=== PATIENT | female | born 1970 | race Caucasian/White ===

== ENCOUNTER 2016-07-17 21:53 | Inpatient (IN) | payer MEDICAID ==
[~2016-07-17] VITALS: Ht 160 cm; Wt 76.0 kg
[2016-07-17 22:00] VITALS: Ht 160 cm; Wt 76.0 kg
[2016-07-17] MEDS ORDERED: SOD CHLORIDE 0.9% 500 ML IV STA (23:58)
[2016-07-18] VITALS (7 sets, daily range): BP systolic 143–197; BP diastolic 74–106; PULSE 73–86; RESP 20–22; TEMP 97.8
[2016-07-18 00:21] LABS: ADD SCAN DIFF NO; BASOPHIL # 0.1 10^3/ul (0.0-0.1); BASOPHILS % 0.7 % (0.0-2.0); EOSINOPHILS # 0.3 10^3/ul (0.0-0.5); EOSINOPHILS % 3.4 % (0.0-7.0); HEMATOCRIT 22.9 % (37.0-47.0); LYMPHOCYTES # 2.6 10^3/ul (0.8-2.9); LYMPHOCYTES % 35.1 % (15.0-51.0); MEAN CORPUSCULAR HEMOGLOBIN 26.8 pg (29.0-33.0); MEAN CORPUSCULAR HGB CONC 30.6 g/dl (32.0-37.0); MEAN CORPUSCULAR VOLUME 87.7 fl (82.0-101.0); MEAN PLATELET VOLUME 10.4 fl (7.4-10.4); MONOCYTE # 0.4 10^3/ul (0.3-0.9); MONOCYTES % 4.7 % (0.0-11.0); NEUTROPHIL # 4.1 10^3/ul (1.6-7.5); NEUTROPHILS % 55.8 % (39.0-77.0); PLATELET COUNT 295 10^3/UL (140-415); RED BLOOD COUNT 2.61 10^6/ul (4.20-5.40); RED CELL DISTRIBUTION WIDTH 13.9 % (11.5-14.5); RETICULOCYTE COUNT % 3.7 % (0.5-1.5); WHITE BLOOD COUNT 7.4 10^3/ul (4.8-10.8)
[2016-07-18 00:41] LABS: ADD UMIC YES; IRON 22 ug/dl (35-150); URINE BILIRUBIN (Dip) NEGATIVE (NEGATIVE); URINE BLOOD (Dip) 1+ (NEGATIVE); URINE COLOR LT. YELLOW (YELLOW); URINE GLUCOSE (Dip) NEGATIVE (NEGATIVE); URINE KETONES (Dip) NEGATIVE (NEGATIVE); URINE LEUKOCYTE ESTERASE (Dip) TRACE (NEGATIVE); URINE NITRITE (Dip) NEGATIVE (NEGATIVE); URINE TOTAL PROTEIN (Dip) 2+ (NEGATIVE); URINE UROBILINOGEN (Dip) 0.2 E.U./dL (0.1-1.0)
[2016-07-18] MEDS ORDERED: ATEN-51 PO (00:41)
[2016-07-18] MEDS ORDERED: LOSA25TA5 PO (00:41)
[2016-07-18] MEDS ORDERED: ACET325T33 PO (00:41)
[2016-07-18 00:42] LABS: CALCIUM 8.5 mg/dl (8.4-10.2); CREATININE 8.57 mg/dl (0.44-1.00); POTASSIUM 4.4 mmol/L (3.5-5.1)
[2016-07-18 00:50] LABS: TOTAL IRON BINDING CAPACITY 284 ug/dl (241-421)
[2016-07-18 01:11] LABS: BACTERIA,URINE FEW; SQUAMOUS EPITHELIAL CELL,UR FEW
--- NOTE | 2016-07-18 02:33 | ERA ---
ER Documentation Chief Complaint Date/Time DATE: 07/18/16 TIME: 02:32 Chief Complaint abnorma lab results , sent by [facility] HPI This a 46-year-old female sent in from an outside clinic for anemia. She denies any symptomology. Was found to have a hemoglobin of 7. Denies any bleeding. Denies any black tarry stools. Does complain of heavy periods. ROS All systems reviewed and are negative except as per history of present illness. Medications Home Meds Reported Medications Acetaminophen* (Tylenol*) 325 Mg Tablet, 325 MG PO Q6H Y for PAIN AND OR ELEVATED TEMP, TAB 07/18/16 Atenolol* (Atenolol*) 25 Mg Tablet, 25 MG PO DAILY, #30 TAB 07/18/16 Losartan Potassium* (Losartan Potassium*) 25 Mg Tablet, 25 MG PO DAILY, TAB 07/18/16 Allergies Allergies: Coded Allergies: No Known Allergy (Unverified , 07/17/16) PMhx/Soc History of Surgery: Yes (c/s) Anesthesia Reaction: No Hx Cardiac Disorders: Yes (htn, high cholesterol) Hx Miscellaneous Medical Probl: Yes (anemia, post- blood transfusion 20 yrs ago) Hx Alcohol Use: No Hx Substance Use: No Hx Tobacco Use: No Smoking Status: Never smoker Physical Exam Vitals Vital Signs Date Time Temp Pulse Resp B/P Pulse Ox O2 Delivery O2 Flow Rate FiO2 07/18/16 01:55 97.8 77 23 150/86 99 Room Air 07/18/16 01:00 74 21 148/79 95 Room Air 07/18/16 00:15 73 22 156/78 95 Room Air 07/17/16 22:00 98.4 68 20 191/79 100 Physical Exam Const: [] Head: Atraumatic Eyes: Normal Conjunctiva ENT: Normal External Ears, Nose and Mouth. Neck: Full range of motion..~ No meningismus. Resp: Clear to auscultation bilaterally Cardio: Regular rate and rhythm, no murmurs Abd: Soft, non tender, non distended. Normal bowel sounds Skin: No petechiae or rashes Back: No midline or flank tenderness Ext: No cyanosis, or edema Neur: Awake and alert Psych: Normal Mood and Affect Result Diagram: 07/18/16 0005 07/18/16 0005 Results 24 hrs Laboratory Tests Test 07/18/16 00:05 White Blood Count 7.410^3/ul Red Blood Count 2.6110^6/ul Hemoglobin 7.0g/dl Hematocrit 22.9% Mean Corpuscular Volume 87.7fl Mean Corpuscular Hemoglobin 26.8pg Mean Corpuscular Hemoglobin Concent 30.6g/dl Red Cell Distribution Width 13.9% Platelet Count 06653^3/UL Mean Platelet Volume 10.4fl Neutrophils % 55.8% Lymphocytes % 35.1% Monocytes % 4.7% Eosinophils % 3.4% Basophils % 0.7% Nucleated Red Blood Cells % 0.0/100WBC Neutrophils # 4.110^3/ul Lymphocytes # 2.610^3/ul Monocytes # 0.410^3/ul Eosinophils # 0.310^3/ul Basophils # 0.110^3/ul Nucleated Red Blood Cells # 0.010^3/ul Absolute Reticulocyte Count 0.097X10^6 Percent Reticulocyte Count 3.7% Urine Color LT. YELLOW Urine Clarity CLEAR Urine pH 6.0 Urine Specific [place] 1.015 Urine Ketones NEGATIVE Urine Nitrite NEGATIVE Urine Bilirubin NEGATIVE Urine Urobilinogen 0.2 E.U./dL Urine Leukocyte Esterase TRACE Urine Microscopic RBC 5-10/HPF Urine Microscopic WBC 2-5/HPF Urine Squamous Epithelial Cells FEW Urine Bacteria FEW Urine Hemoglobin 1+ Urine Glucose NEGATIVE% Urine Total Protein 2+ Sodium Level 139mmol/L Potassium Level 4.4mmol/L Chloride Level 112mmol/L Carbon Dioxide Level 14mmol/L Anion Gap 17 Blood Urea Nitrogen 66mg/dl Creatinine 8.57mg/dl Glucose Level 95mg/dl Calcium Level 8.5mg/dl Iron Level 22ug/dl Total Iron Binding Capacity 284ug/dl Percent Iron Saturation 8% SAT Lactate Dehydrogenase 514IU/L Current Medications Medications (Trade) Dose Ordered Sig/Aleksey Route PRN Reason Start Time Stop Time Status Last Admin Dose Admin Sodium Chloride (NS) 500 ml @ 500 mls/hr Q1H STAT IV 07/17/16 23:58 07/18/16 00:57 DC 07/18/16 00:26 Procedures/MDM Medical decision-makin year female with severe anemia. Patient typed and crossed for 2 units. Patient was admitted to [facility] to the hospitalist. Departure Diagnosis: Primary Impression: Iron deficiency anemia Qualified Code: D50.9 - Iron deficiency anemia, unspecified iron deficiency anemia type Condition: Serious ANGELA AVILES July 18, 2016 02:33
--- NOTE | 2016-07-18 06:21 | QN ---
Documentation Comment Patient c/o SOB and coughing after getting 500cc NS and 2 units PRBC. no fever. Rales on lung exam. No distress. Concern for mild volume overload. Low concern for TRALI. Patient with new ARF. Still makes urine. Will try small dose of lasix 20mg IV. CXR ordered. Admitting team notified. Pending bed at this time. No indication for BIPAP at this time. Continue to monitor. RAGINI BAIRD MD July 18, 2016 06:21
[2016-07-18] MEDS ORDERED: FUROSEMIDE 20 MG INJ IV ONE (06:30)
--- NOTE | 2016-07-18 06:33 | RADRPT ---
PROCEDURE: XR Chest. CLINICAL INDICATION: Cough TECHNIQUE: An AP view of the chest was obtained. COMPARISON: No prior exam is available for comparison. FINDINGS: There is prominence of the interstitial markings. No pleural effusion or pneumothorax is seen. Th e cardiomediastinal silhouette is mildly enlarged . The osseous structures are unremarkable IMPRESSION: 1. Diffuse prominence of the interstitial markings, may reflect mild underlying interstitial edema or chronic lung changes. 2. Mild cardiomegaly. RPTAT: HH .Radha Woodruff MD, MD Date Time Electronically viewed and signed by .Radha Woodruff MD, MD on 07/18/2016 06:33 .G/
[2016-07-18] MEDS ORDERED: NITROGLYCERIN (SL) 0.4 MG TAB SL ONE (08:00)
[2016-07-18] MEDS ORDERED: ACETAMINOPHEN 325 MG TAB PO PRN (09:00)
[2016-07-18] MEDS ORDERED: ATENOLOL 25 MG TAB PO SCH (09:00)
[2016-07-18] MEDS: ACETAMINOPHEN 325 MG TAB PO PRN ×2 (09:41→19:39)
[2016-07-18] MEDS: ATENOLOL 25 MG TAB PO SCH (09:42)
[2016-07-18] MEDS: hydrALAzine 20 MG INJ IV PRN ×2 (09:49→19:39)
--- NOTE | 2016-07-18 11:04 | HP ---
DATE OF ADMISSION: 07/18/2016 TIME SEEN: 6 a.m. CHIEF COMPLAINT: Abnormal lab results. HISTORY OF PRESENT ILLNESS: The patient is a 46-year-old female with a history of hypertension, dys lipidemia, and possibly anemia, who presented to the emergency department after she was sent from a clinic for abnormal lab results including decreased hemoglobin and elevated creatinine. The patient reports some generalized weakness and on further questioning, she did report occasional abdominal p ain, mainly in the epigastric area as well as having almost constant vaginal bleeding for over a yea r. When she presented to the ER, blood pressure was 191/79, heart rate 68, respiratory rate 20, tempera ture 98.4, oxygen saturation 100% on room air. Laboratories result shows a hemoglobin of 7, creatin ine 8.57, BUN 66, bicarb 14, chloride 112. Potassium was 4.4 and sodium 139. Blood transfusion had been started in the ER. REVIEW OF SYSTEMS: Twelve-point review was performed, negative except as mentioned in the HPI. PAST MEDICAL HISTORY: As per HPI. PAST SURGICAL HISTORY: . SOCIAL HISTORY: Denied history of tobacco, alcohol, or illicit drug use. ALLERGIES: NO KNOWN DRUG ALLERGIES. HOME MEDICATIONS: 1. Atenolol. 2. Losartan. 3. Tylenol. PHYSICAL EXAMINATION: VITAL SIGNS: Blood pressure 156/88, heart rate 58, respiratory rate 16, temperature 97.9, oxygen sa turation 100% on room air. GENERAL: The patient seems to have shortness of breath. HEENT: No obvious head deformity. Pupils reactive to light. Extraocular muscles intact. CARDIOVASCULAR: Regular rate and rhythm with no extra sounds . ABDOMEN: Soft. There is some mild discomfort in the epigastric area to deep palpation. No guardin g, no rebound tenderness, no rigidity. EXTREMITIES: No edema. NEUROLOGIC: No focal deficit. LABORATORY: Pertinent positives results as mentioned in the HPI. IMPRESSION: 1. Severe anemia, likely secondary to dysfunctional uterine bleeding. 2. Acute renal insufficiency. 3. Hypertensive urgency. 4. . 5. Metabolic acidosis. PLAN: Continue blood transfusion. We will obtain a pelvic/vaginal ultrasound to evaluate for fibro id. We will place a nephrology consult. Monitor her hemoglobin closely. Avoid nephrotoxins. We w ill obtain a renal ultrasound, but it seems like her renal insufficiency has a prerenal etiology. W e will give IV fluids for blood transfusion. Further workup and management per clinical course. Dictated By: ANGELA COX/BILL Conf#: [id number] DID#: [id number]
--- NOTE | 2016-07-18 12:02 | RADRPT ---
PROCEDURE: US Retroperitoneum. CLINICAL INDICATION: Elevated BUN and creatinine. Rule out hydronephrosis. TECHNIQUE: Multiple sonographic images of the retroperitoneum were obtained. Evaluation of the ki dneys and bladder was performed as well as visualization of the aorta and other retroperitoneal stru ctures using a curved array transducer. The images were reviewed on a PACS workstation. COMPARISON: No prior studies are available for comparison. FINDINGS: The kidneys are well visualized. The kidneys are atrophic and diffusely hyperechogenic. The right kidney measures 6.4 cm in length. The left kidney measures 8.1 cm in length. There are no focal areas of abnormal echogenicity. There is no mass, calculus, or obstructive uropathy. No perinephric fluid collection is seen. The aorta and IVC are of normal caliber. There is no evidence for aortic aneurysm. The bladder is only partially distended but appears grossly unremarkable. Renal jets are not identified. Postvoid residual was not obtained. IMPRESSION: 1. Hyperechogenic, atrophic kidneys, suggesting medical renal disease. 2. No evidence of hydronephrosis, renal mass or renal calculi. RPTAT: QQ .Patrick Chan MD, Date Time Electronically viewed and signed by .Patrick Chan MD, MD on 07/18/2016 12:01 .Umair/
--- NOTE | 2016-07-18 12:17 | RADRPT ---
PROCEDURE: US Pelvis CLINICAL INDICATION: Dysfunctional uterine bleeding TECHNIQUE: Sonographic evaluation of the pelvis was performed utilizing both transabdominal and tr ansvaginal technique. Curved array transabdominal transducer technique as well as a high frequency endovaginal probe was utilized. Images were reviewed on the high-resolution PACS workstation. COMPARISON: No prior studies are available for comparison. FINDINGS: The exam is of technically limited quality. The uterus is normal in size, echogenicity, and morphology, measuring 10.1 x 7.2 x 6.0 cm. Heterogeneous hypoechoic focus in the lower uterine segment measures 2.3 cm, likely a fibroid. The uterus is anteverted in normal position. The endometrium measures 8.4 mm in thickness. The normal trilaminar stripe of the endometrium is preserved. The right ovary measures 2.1 x 1.5 x 1.8 cm. The left ovary measures 3.1 x 1.5 x 1.9 cm. The ovaries are symmetric in size, echogenicity, and morphology. There are no adnexal masses. There is no significant free fluid in the pelvis. IMPRESSION: 1. Hypoechoic focus in the lower uterine segment measuring up to 2.3 cm, likely a fibroid. 2. Otherwise unremarkable pelvic ultrasound, but with technically limited quality of images. RPTAT: QQ .Patrick Chan MD, Date Time Electronically viewed and signed by .Patrick Chan MD, on 07/18/2016 12:17 .M/
[2016-07-18 17:12] LABS: POTASSIUM,URINE RANDOM 16.1 mmol/L (25-125)
[2016-07-18 17:13] LABS: HEMATOCRIT 30.3 % (37.0-47.0); HEMOGLOBIN 9.9 g/dl (12.0-16.0)
[2016-07-18 17:24] LABS: PROTEIN/CREAT RATIO 6.98 RATIO
[2016-07-18] MEDS: SOD CHLORIDE 0.45% 1,000 ML IV SCH (20:27)
--- NOTE | 2016-07-18 20:29 | CONS ---
Date/Time of Note Date/Time of Note DATE: 07/18/16 TIME: 20:27 Assessment/Plan Assessment/Plan Chief Complaint/Hosp Course [id number] renal A/P ESRD HTN HX DM ANEMIA METABOLIC ACIDOSIS PLAN PER ORDER Problems: Consultation Date/Type/Reason Admit Date/Time July 18, 2016 at 02:27 Initial Consult Date Type of Consultation: renal 24 HR Interval Summary Constitutional: No chills, No febrile Exam/Review of Systems Vital Signs Vitals Vital Signs Date Time Temp Pulse Resp B/P Pulse Ox O2 Delivery O2 Flow Rate FiO2 07/18/16 10:50 86 20 162/74 97 Nasal Cannula 07/18/16 08:30 98.6 07/18/16 08:30 3.0 Exam Neck: supple Respiratory: clear to auscultation Cardiovascular: regular rate and rhythm Gastrointestinal: soft, No distended, No hepatomegaly Musculoskeletal: nl extremities to inspection Extremities: normal pulses Neurological: RADIOLOGIC TECHNICIAN II-XII intact, nl mental status Skin: nl turgor Results Result Diagram: 07/18/16 1704 07/18/16 0005 Results 24 hrs Laboratory Tests Test 07/18/16 00:05 07/18/16 07:05 07/18/16 17:04 White Blood Count 7.4 Red Blood Count 2.61 L Hemoglobin 7.0 L 9.9 #L Hematocrit 22.9 L 30.3 #L Mean Corpuscular Volume 87.7 Mean Corpuscular Hemoglobin 26.8 L Mean Corpuscular Hemoglobin Concent 30.6 L Red Cell Distribution Width 13.9 Platelet Count 295 Mean Platelet Volume 10.4 Neutrophils % 55.8 Lymphocytes % 35.1 Monocytes % 4.7 Eosinophils % 3.4 Basophils % 0.7 Nucleated Red Blood Cells % 0.0 Neutrophils # 4.1 Lymphocytes # 2.6 Monocytes # 0.4 Eosinophils # 0.3 Basophils # 0.1 Nucleated Red Blood Cells # 0.0 Absolute Reticulocyte Count 0.097 Percent Reticulocyte Count 3.7 H Urine Color LT. YELLOW Urine Clarity CLEAR Urine pH 6.0 Urine Specific [place] 1.015 Urine Ketones NEGATIVE Urine Nitrite NEGATIVE Urine Bilirubin NEGATIVE Urine Urobilinogen 0.2 E.U./dL Urine Leukocyte Esterase TRACE H Urine Microscopic RBC 5-10 Urine Microscopic WBC 2-5 Urine Squamous Epithelial Cells FEW Urine Bacteria FEW Urine Hemoglobin 1+ H Urine Glucose NEGATIVE Urine Total Protein 2+ H 331.0 H Sodium Level 139 Potassium Level 4.4 Chloride Level 112 H Carbon Dioxide Level 14 L Anion Gap 17 H Blood Urea Nitrogen 66 H Creatinine 8.57 H Glucose Level 95 Calcium Level 8.5 Iron Level 22 L Total Iron Binding Capacity 284 Percent Iron Saturation 8 L Lactate Dehydrogenase 514 Urine Random Creatinine 47.39 Urine Random Sodium 50 Urine Random Potassium 16.1 L Urine Protein/Creatinine Ratio 6.98 Hemoglobin A1c 5.4 Phosphorus Level 7.1 H Medications Medications Current Medications Atenolol (Tenormin) 25 mg DAILY PO Last administered on 07/18/16 09:42; Admin Dose 25 MG; Start 07/18/16 at 09:30 Ondansetron HCl (Zofran Inj) 4 mg Q6H PRN IV NAUSEA AND/OR VOMITING; Start at 09:00 Hydralazine HCl (Apresoline) 10 mg Q4H PRN IV ELEVATED BLOOD PRESSURE Last administered on 07/18/16 19:39; Admin Dose 10 MG; Start 07/18/16 at 09:00 Acetaminophen 650 mg 650 mg Q6H PRN PO PAIN AND OR ELEVATED TEMP Last administered on 07/18/16 19:39; Admin Dose 650 MG; Start 07/18/16 at 15:00 Sodium Chloride (1/2 NS) 1,000 ml @ 50 mls/hr Q20H IV ; Start 07/18/16 at 20:00 TOI REILLY MD July 18, 2016 20:29
[2016-07-18] MEDS: CITRIC ACID/SODIUM CITRATE 15 ML CUP PO SCH (22:21)
[2016-07-18 23:34] LABS: HAAIG REFLEX REFLEX FILED
[2016-07-19] VITALS (21 sets, daily range): BP systolic 118–197; BP diastolic 61–93; PULSE 67–86; RESP 15–18
[2016-07-19 00:35] LABS: HEPATITIS B CORE ANTIBODY NEGATIVE (NEGATIVE)
[2016-07-19 00:48] LABS: COMPLEMENT C3 99 mg/dl (88-165); COMPLEMENT C4 33 mg/dl (14-44)
--- NOTE | 2016-07-19 01:08 | CONS ---
DATE OF ADMISSION: 07/18/2016 DATE OF CONSULTATION: 07/18/2016 TYPE OF CONSULTATION: Nephrology. Thank you, Dr. Beckman, for kindly asking me to see this patient in nephrology consultation. HISTORY OF PRESENT ILLNESS: The patient, Lorena Mckeon, is a 49-year-old female with history of hypertension, dyslipidemia, anemia, history of diabetes mellitus in the past; had used antidiabetic medication and then stopped, thinking her sugar is good. Patient has not seen a physician for a chrissie y, very long time, and presented to clinic, where she was noted to have renal failure and had dipsti ck positive for proteinuria. The patient noted to have microalbuminuria and transferred here for se pete anemia, electrolyte imbalance, and hypertensive urgency. Patient denies NSAID abuse, denies an y hematuria or dysuria, denies any history of lupus, denies any history of weight loss, denies any h istory of kidney stone, denies any history [id number] herbal medications, denies any history o f rheumatoid arthritis or purpura, skin rash, or photophobia. PAST MEDICAL HISTORY: Hypertension, dyslipidemia, history of diabetes (stopped taking medication). ALLERGY HISTORY: Negative. FAMILY HISTORY: Diabetes mellitus. SOCIAL HISTORY: Negative. PAST SURGICAL HISTORY: Patient has a history of . MEDICATIONS AT HOME: Patient is on: 1. Atenolol. 2. Losartan. REVIEW OF SYSTEMS: HEENT: Unremarkable for headache, diplopia, blurred vision, ulcer, hemoptysis. Denies any epistaxi s or skin rash. CARDIOVASCULAR: No orthopnea, PND. GASTROINTESTINAL: No hematemesis, melena. EXTREMITIES: No swelling. CENTRAL NERVOUS SYSTEM: Denies numbness and tingling. GENITOURINARY: No kidney stones, no hematuria, dysuria, or flank pain. PHYSICAL EXAMINATION: GENERAL: Pale-looking female, awake, alert. VITAL SIGNS: Pulse of 82, blood pressure 162/74. HEAD: Atraumatic, normocephalic. Pupils are equal, reactive to light, conjunctivae with no icterus . NECK: Supple. No JVD. LUNGS: Clear. CARDIOVASCULAR: S1, S2 are normal. ABDOMEN: Soft, nontender. Bowel sounds present. No palpable mass or hepatosplenomegaly. No guard ing or rebound tenderness. EXTREMITIES: There is no cyanosis, clubbing, edema. CENTRAL NERVOUS SYSTEM: The patient is awake, alert, no deficit. LABORATORY DATA: Hematocrit 22, repeat 33.3, sodium 139, potassium 4.4, CO2 of 14, BUN 66, creatini ne 8.57, phosphorus 7.1. The patient's has of 514. The patient had a chest x-ray with diffus e prominence of the interstitial marking. Patient had a pelvic ultrasound focused in the lower uter ine segment. Ultrasound of kidney: No evidence of hydronephrosis, right kidney 6.4 cm, left kidney 8.1 cm. IMPRESSION: 1. Patient has end-stage renal disease. 2. The patient has uncontrolled hypertension. 3. The patient has chronic kidney disease, possibly due to diabetic nephropathy and hypertensive ne phrosclerosis, anemia of kidney disease, metabolic acidosis. 4. The patient has history of dyslipidemia. PLAN: To obtain lupus panel. The patient will have urine sodium and creatinine, eosinophils, C3, C 4, JACKELYN, and hepatitis panel. The patient will also benefit from hemodialysis. The patient will be started on for metabolic acidosis. Thank you, Dr. Beckman, for kindly asking me to see this patient in nephrology consultation. Dictated By: TOI CABALLERO/BILL Conf#: [id number] DID#: [id number]
[2016-07-19 05:19] LABS: ADD SCAN DIFF NO
[2016-07-19 05:27] LABS: BASOPHIL # 0.1 10^3/ul (0.0-0.1); BASOPHILS % 0.9 % (0.0-2.0); EOSINOPHILS # 0.2 10^3/ul (0.0-0.5); HEMATOCRIT 27.7 % (37.0-47.0); LYMPHOCYTES # 0.9 10^3/ul (0.8-2.9); LYMPHOCYTES % 16.9 % (15.0-51.0); MEAN CORPUSCULAR HEMOGLOBIN 27.7 pg (29.0-33.0); MEAN CORPUSCULAR HGB CONC 32.5 g/dl (32.0-37.0); MEAN CORPUSCULAR VOLUME 85.2 fl (82.0-101.0); MEAN PLATELET VOLUME 10.5 fl (7.4-10.4); MONOCYTE # 0.4 10^3/ul (0.3-0.9); MONOCYTES % 6.8 % (0.0-11.0); NEUTROPHIL # 3.7 10^3/ul (1.6-7.5); PLATELET COUNT 245 10^3/UL (140-415); RED BLOOD COUNT 3.25 10^6/ul (4.20-5.40); RED CELL DISTRIBUTION WIDTH 14.5 % (11.5-14.5); WHITE BLOOD COUNT 5.3 10^3/ul (4.8-10.8)
[2016-07-19 06:06] LABS: ALBUMIN 3.1 g/dl (3.3-4.9)
[2016-07-19 06:07] LABS: POTASSIUM 4.3 mmol/L (3.5-5.1)
[2016-07-19 06:09] LABS: ALBUMIN/GLOBULIN RATIO 1.1; BILIRUBIN,INDIRECT 0.2 mg/dl (0-1.1); BILIRUBIN,TOTAL 0.2 mg/dl (0.2-1.3); CREATININE 8.06 mg/dl (0.44-1.00); TOTAL PROTEIN 5.9 g/dl (6.1-8.1)
[2016-07-19 06:10] LABS: CALCIUM 8.6 mg/dl (8.4-10.2)
[2016-07-19] MEDS: hydrALAzine 20 MG INJ IV PRN ×3 (08:14→17:05)
[2016-07-19] MEDS: ATENOLOL 25 MG TAB PO SCH (08:19)
[2016-07-19] MEDS: CITRIC ACID/SODIUM CITRATE 15 ML CUP PO SCH ×2 (08:19→21:34)
--- NOTE | 2016-07-19 11:36 | RADRPT ---
PROCEDURE: US bilateral upper extremity veins. CLINICAL INDICATION: Preoperative evaluation for central line placement. TECHNIQUE: Multiple longitudinal and transverse images of the bilateral internal jugular veins, ax illary veins, and subclavian veins was obtained with laguna scale, pulsed Doppler imaging, and color D oppler imaging. COMPARISON: None available FINDINGS: The internal jugular veins, axillary veins, and subclavian veins are patent bilaterally. There is no rmal flow and compressibility throughout. There is no thrombus or occlusion. The right internal jugular vein diameter is 1.2 cm and the left internal jugular vein diameter is 0. 6 cm. IMPRESSION: 1. Normal bilateral internal jugular and subclavian veins. RPTAT: QQ .Seun Alamo MD, MD Date Time Electronically viewed and signed by .Seun Alamo MD, on 07/19/2016 11:36 .R/
--- NOTE | 2016-07-19 12:58 | PN ---
DATE: 07/19/2016 SUBJECTIVE: The patient seen by renal team, still having adequate urine output. No acute events ov ernight. Awaiting PermCath placement. The patient did receive PRBC transfusion. OBJECTIVE VITAL SIGNS: Stable except for systolic blood pressures running 143 to 179 systolic over 75 to 82 d iastolic. The rest of the vitals are stable. GENERAL: The patient is lying in bed, multiple family members at the bedside. No acute distress. HEENT: Pupils equal, round, react to light. Extraocular muscles intact. NECK: Supple, no thyromegaly. LUNGS: Clear to auscultation bilaterally. CARDIOVASCULAR: S1, S2 heard. No rubs or gallops. ABDOMEN: Soft, nontender, nondistended. Normal bowel sounds. No rebound or guarding. MUSCULOSKELETAL: No lower extremity bilaterally. NEUROLOGIC: No focal deficits. LABORATORY DATA: CBC is normal. Sodium is 141, potassium 4.3, chloride 113, CO2 15, BUN of 67, cre atinine 8.06. LFTs are normal. Bilateral upper extremity Doppler study was performed that shows no rmal bilateral internal jugular and subclavian veins. ASSESSMENT AND PLAN: A 46-year-old female presenting with renal insufficiency and anemia. 1. Severe anemia, possibly secondary to dysfunctional uterine bleeding. The pelvic ultrasound did showed hypoechoic focus in the lower uterine segment measuring 2.3 cm, likely a fibroid. The patien t denies any prior history of irregular menses except for 1 episode that occurred last month. That was the first time it happened. In any event, she got the blood transfusion. Check iron studies. Consider ADMINISTRATIVE ASSISTANT OFFICE MANAGER consult. 2. Acute renal insufficiency. Again, her BUN and creatinine levels severely elevated, although she has adequate urine output. Appreciate renal consult. Plan is for PermCath placement and then hemo dialysis afterwards. Follow up renal recommendations. 3. Hypertension. Again, blood pressure is on the high normal end. Continue hydralazine p.r.n. 4. High cholesterol, follow up lipid panel. Continue to monitor for now. 5. Gastrointestinal prophylaxis. Add H2 hector. 6. Deep venous thrombosis prophylaxis for now, sequential compression devices. Dictated By: ORIN WAGNER Conf#: [id number] DID#: [id number]
[2016-07-19] MEDS: RANITIDINE 150 MG TAB PO SCH ×2 (13:00→21:33)
[2016-07-19 13:14] LABS: INR 1.14; PROTIME 14.6 Sec (12.2-14.2); PT RATIO 1.1
[2016-07-19 13:15] LABS: PARTIAL THROMBOPLASTIN TIME 28.6 Sec (25.0-35.0)
[2016-07-19] MEDS ORDERED: SOD CHLORIDE 0.9% 500 ML ONE (14:29)
[2016-07-19] MEDS ORDERED: LIDOCAINE 1% (MDV) 20 ML INJ ONE (14:29)
[2016-07-19] MEDS ORDERED: HEPARIN 1000 UNITS/ML 10 ML INJ ONE (14:29)
[2016-07-19 14:51] LABS: IRON 66 ug/dl (35-150)
[2016-07-19] MEDS ORDERED: FENTAnyl 50 MCG/ML VIAL ONE (14:52)
[2016-07-19] MEDS ORDERED: MIDAZOLAM 1 MG/ML 2 ML INJ ONE (14:52)
[2016-07-19] MEDS ORDERED: CEFAZOLIN 1 GM/50 ML (PMX) 50 ML IVPB ONE (14:53)
[2016-07-19 15:00] LABS: TOTAL IRON BINDING CAPACITY 272 ug/dl (241-421)
[2016-07-19] MEDS: SOD CHLORIDE 0.45% 1,000 ML IV SCH (16:00)
--- NOTE | 2016-07-19 16:18 | RADRPT ---
PROCEDURE: Ultrasound guidance for placement of needle in right internal jugular vein. CLINICAL INDICATION: Venous access. TECHNIQUE: Prior to the procedure, informed consent was obtained. Risks including bleeding, infection, and pneu mothorax were explained to the patient. The patient understood and was willing to proceed. A procedu ral pause was performed. The patient's name, date of , and procedure to be performed were verif ied. The central line was inserted with all elements of maximal sterile barrier technique. All of th e following were used: head covering, facial mask, sterile gown, sterile gloves, a large sterile she et, hand hygiene, and 2% chlorhexidine for cutaneous antisepsis. The right neck and anterior/super ior chest wall was prepped and draped in usual sterile fashion. Limited sonography of the right neck was then performed. Noted is a patent right internal jugular ve in. Ultrasound images were recorded and stored in the patient's medical record. Following the local injection of Xylocaine, the right internal jugular vein was punctured under sono graphic guidance with a 20-gauge needle through which a 0.018 inch floppy tip guidewire was advanced into the superior vena cava. The patient tolerated the procedure well. The remainder of the proce dure was performed and dictated under separate cover. COMPARISON: None. FINDINGS: The ultrasound images demonstrate a patent right internal jugular vein. The subsequent images demon strate the needle entering the right internal jugular vein. IMPRESSION: 1. Ultrasound guidance for a needle placement in right internal jugular vein. RPTAT: QQ .Seun Alamo MD, Date Time Electronically viewed and signed by .Seun Alamo MD, MD on 07/19/2016 16:18 .R/
--- NOTE | 2016-07-19 16:19 | RADRPT ---
PROCEDURE: PLACEMENT OF RIGHT INTERNAL JUGULAR VENOUS TUNNELED DIALYSIS CATHETER. CLINICAL INDICATION: Renal failure. TECHNIQUE: Prior to the procedure, informed consent was obtained. Risks including bleeding, infection, and pneu mothorax were explained to the patient and/or the patient's family. The patient and/or the patient's family understood and was willing to proceed. A procedural pause was performed. The patient's name, date of , and procedure to be performed were verified. The central line was inserted with all elements of maximal sterile barrier technique. All of the following were used: head covering, facial mask, sterile gown, sterile gloves, a large sterile sheet, hand hygiene, and 2% chlorhexidine for cutaneous antisepsis. The right neck and anterior/superior chest wall was prepped and draped in usu al sterile fashion. Limited sonography of the right neck was then performed. Noted is a patent right internal jugular ve in. Ultrasound images were recorded and stored in the patient's medical record. Following the local injection of Xylocaine, the right internal jugular vein was punctured under sono graphic guidance with a 20-gauge needle through which a 0.018 inch floppy tip guidewire was advanced into the superior vena cava. The tract was dilated to 5 Bengali and the wire was then replaced with a 0.035 in Amplatz guidewire. A tunnel was then created from the anterior lateral aspect of the sup erior right chest wall to the puncture site in the neck and the catheter was pulled through the trac t. Serial dilatation was then performed and a 16 Bengali peel away sheath was introduced. The 14.5 Bengali 23cm tip to cuff Angiodynamics BioFlo DuraMax dialysis catheter was advanced through the 16 F rench peel-away sheath. The tip of the catheter was confirmed in position within the right atrium. T he peel-away sheath was removed. The 2 ports were each flushed with 2.3 ml of 1:1000 heparin. The c atheter was secured to the skin with 2-0 silk. The wound in the neck was closed with 4-0 Vicryl suture using subcuticular running technique. The site was dressed. The patient tolerated the proce dure well. COMPARISON: None. FINDINGS: Final radiographic images demonstrate the tip of the catheter in the upper right atrium. A total of 0.1 minutes of fluoroscopy time was used. 5 fluoroscopic guided images were obtained. The ultraso und images demonstrate the needle entering the jugular vein. Ultrasound images were recorded and st ored in the patient's medical record. IMPRESSION: 1. Percutaneous insertion of right internal jugular dialysis tunneled dialysis catheter under fluoro scopic and sonographic guidance. RPTAT: QQ .Seun Alamo MD, MD Date Time Electronically viewed and signed by .Seun Alamo MD, on 07/19/2016 16:19 .R/
[2016-07-19] MEDS ORDERED: ONDANSETRON 4 MG INJ ONE (16:31)
[2016-07-19] MEDS: morphine 4 MG/ML VIAL IV PRN (17:32)
[2016-07-19] MEDS: MANNITOL 25% 50 ML IV PRN (19:58)
[2016-07-19] MEDS: ACETAMINOPHEN 325 MG TAB PO PRN (23:53)
[2016-07-20] VITALS (8 sets, daily range): BP systolic 139–164; BP diastolic 65–92; PULSE 60–69; RESP 18
[2016-07-20 05:28] LABS: ADD SCAN DIFF NO
[2016-07-20 05:34] LABS: BASOPHIL # 0.1 10^3/ul (0.0-0.1); EOSINOPHILS % 0.4 % (0.0-7.0); HEMATOCRIT 27.5 % (37.0-47.0); HEMOGLOBIN 8.7 g/dl (12.0-16.0); LYMPHOCYTES # 1.1 10^3/ul (0.8-2.9); LYMPHOCYTES % 22.3 % (15.0-51.0); MEAN CORPUSCULAR HGB CONC 31.6 g/dl (32.0-37.0); MEAN CORPUSCULAR VOLUME 85.4 fl (82.0-101.0); MEAN PLATELET VOLUME 10.6 fl (7.4-10.4); MONOCYTE # 0.5 10^3/ul (0.3-0.9); MONOCYTES % 9.7 % (0.0-11.0); NEUTROPHIL # 3.3 10^3/ul (1.6-7.5); PLATELET COUNT 254 10^3/UL (140-415); RED BLOOD COUNT 3.22 10^6/ul (4.20-5.40); RED CELL DISTRIBUTION WIDTH 14.4 % (11.5-14.5); WHITE BLOOD COUNT 4.9 10^3/ul (4.8-10.8)
[2016-07-20] MEDS: ACETAMINOPHEN 325 MG TAB PO PRN (05:54)
[2016-07-20 05:55] LABS: CALCIUM 8.1 mg/dl (8.4-10.2); CREATININE 5.82 mg/dl (0.44-1.00); POTASSIUM 3.8 mmol/L (3.5-5.1)
[2016-07-20] MEDS: ONDANSETRON 4 MG INJ IV PRN ×2 (06:37→14:40)
[2016-07-20] MEDS: ATENOLOL 25 MG TAB PO SCH (08:29)
[2016-07-20] MEDS: CITRIC ACID/SODIUM CITRATE 15 ML CUP PO SCH ×2 (08:30→21:19)
[2016-07-20] MEDS: RANITIDINE 150 MG TAB PO SCH ×2 (08:30→21:19)
--- NOTE | 2016-07-20 12:48 | PN ---
Date/Time of Note Date/Time of Note DATE: 07/20/16 TIME: 12:45 Assessment/Plan VTE Prophylaxis VTE Prophylaxis Intervention: SCD's Lines/Catheters [facility] Saline Lock Urinary Cath still in place: No Assessment/Plan Chief Complaint/Hosp Course ASSESSMENT AND PLAN: 46-year-old female presenting with renal insufficiency and anemia. 1. Severe anemia -possibly secondary to dysfunctional uterine bleeding. The pelvic ultrasound did showed hypoechoic focus in the lower uterine segment measuring 2.3 cm, likely a fibroid. The patient denies any prior history of irregular menses except for 1 episode that occurred last month. That was the first time it happened. In any event, she got the blood transfusion. - f/u iron studies. Consider [employer] consult. 2. Acute renal insufficiency. Again, her BUN and creatinine levels severely elevated, but trending down (8 -> 5), although she has adequate urine output. Appreciate renal consult. - PermCath placement and then hemodialysis afterwards. Follow up renal recommendations. 3. Hypertension. Again, blood pressure is on the high normal end. Continue hydralazine p.r.n. 4. High cholesterol, follow up lipid panel. Continue to monitor for now. 5. Gastrointestinal prophylaxis - H2 hector. 6. Deep venous thrombosis prophylaxis for now, sequential compression devices. Problems: Subjective 24 Hr Interval Summary Free Text/Dictation Pt denies abd pain, has good UO. Seen by renal team. Exam/Review of Systems Vital Signs Vitals Vital Signs Date Time Temp Pulse Resp B/P Pulse Ox O2 Delivery O2 Flow Rate FiO2 07/20/16 08:14 98.0 80 18 139/65 93 07/19/16 17:37 Room Air 07/19/16 16:15 3.0 Intake and Output 07/19/16 07/19/16 07/20/16 15:00 23:00 07:00 Intake Total 1500 ml 200 ml Output Total 1000 ml 700 ml Balance 500 ml -500 ml Exam GENERAL: The patient is lying in bed, multiple family members at the bedside. No acute distress. HEENT: Pupils equal, round, react to light. Extraocular muscles intact. NECK: Supple, no thyromegaly. LUNGS: Clear to auscultation bilaterally. CARDIOVASCULAR: S1, S2 heard. No rubs or gallops. ABDOMEN: Soft, nontender, nondistended. Normal bowel sounds. No rebound or guarding. MUSCULOSKELETAL: No lower extremity bilaterally. NEUROLOGIC: No focal deficits. Results Result Diagram: 07/20/16 0450 07/20/16 0451 Results 24 hrs Laboratory Tests Test 07/19/16 13:50 07/20/16 04:50 07/20/16 04:51 Iron Level 66 # Total Iron Binding Capacity 272 Percent Iron Saturation 24 White Blood Count 4.9 Red Blood Count 3.22 L Hemoglobin 8.7 L Hematocrit 27.5 L Mean Corpuscular Volume 85.4 Mean Corpuscular Hemoglobin 27.0 L Mean Corpuscular Hemoglobin Concent 31.6 L Red Cell Distribution Width 14.4 Platelet Count 254 Mean Platelet Volume 10.6 H Neutrophils % 66.0 Lymphocytes % 22.3 Monocytes % 9.7 Eosinophils % 0.4 Basophils % 1.0 Nucleated Red Blood Cells % 0.0 Neutrophils # 3.3 Lymphocytes # 1.1 Monocytes # 0.5 Eosinophils # 0.0 Basophils # 0.1 Nucleated Red Blood Cells # 0.0 Sodium Level 140 Potassium Level 3.8 Chloride Level 109 Carbon Dioxide Level 24 Anion Gap 11 Blood Urea Nitrogen 45 #H Creatinine 5.82 #H Glucose Level 71 Calcium Level 8.1 L Medications Medications Current Medications Atenolol (Tenormin) 25 mg DAILY PO Last administered on 07/20/16 08:29; Admin Dose 25 MG; Start 07/18/16 at 09:30 Ondansetron HCl (Zofran Inj) 4 mg Q6H PRN IV NAUSEA AND/OR VOMITING Last administered on 07/20/16 06:37; Admin Dose 4 MG; Start 07/18/16 at 09:00 Hydralazine HCl (Apresoline) 10 mg Q4H PRN IV ELEVATED BLOOD PRESSURE Last administered on 07/19/16 17:05; Admin Dose 10 MG; Start 07/18/16 at 09:00 Acetaminophen (Tylenol Tab) 650 mg Q6H PRN PO PAIN AND OR ELEVATED TEMP Last administered on 07/20/16 05:54; Admin Dose 650 MG; Start 07/18/16 at 15:00 Citric Acid/ Sodium Citrate (Bicitra) 30 ml BID PO Last administered on 08:30; Admin Dose 30 ML; Start 07/18/16 at 21:00 Ranitidine HCl (Zantac) 150 mg BID PO Last administered on 07/20/16 08:30; Admin Dose 150 MG; Start 07/19/16 at 13:00 Morphine Sulfate (morphine) 4 mg Q3H PRN IV MODERATE PAIN LEVEL 4-6 Last administered on 07/19/16 17:32; Admin Dose 4 MG; Start 07/19/16 at 17:00 ORIN RAYMOND July 20, 2016 12:48
[2016-07-20 13:16] LABS: ANA SCREEN POSITIVE (NEGATIVE); ANA TITER 1:40 titer
--- NOTE | 2016-07-20 14:57 | CONS ---
Date/Time of Note Date/Time of Note DATE: 07/20/16 TIME: 14:55 Assessment/Plan Assessment/Plan Chief Complaint/Hosp Course 1. Patient has end-stage renal disease , HD dependent. 2. The patient has uncontrolled hypertension. 3. The patient has chronic kidney disease, possibly due to diabetic nephropathy and hypertensive nephrosclerosis, anemia of kidney disease, metabolic acidosis. 4. The patient has history of dyslipidemia. Problems: Additional Assessment/Plan 1. Continue HD Consultation Date/Type/Reason Admit Date/Time July 18, 2016 at 02:27 Initial Consult Date 07/18/2016 Type of Consultation: renal Reason for Consultation dr Drew Exam/Review of Systems Vital Signs Vitals Vital Signs Date Time Temp Pulse Resp B/P Pulse Ox O2 Delivery O2 Flow Rate FiO2 07/20/16 08:14 98.0 80 18 139/65 93 07/19/16 17:37 Room Air 07/19/16 16:15 3.0 Intake and Output 07/19/16 07/19/16 07/20/16 15:00 23:00 07:00 Intake Total 1500 ml 200 ml Output Total 1000 ml 700 ml Balance 500 ml -500 ml Exam Constitutional: alert, oriented ENMT: nl external ears & nose Neck: supple Respiratory: clear to auscultation Cardiovascular: regular rate and rhythm Results Result Diagram: 07/20/16 0450 07/20/16 0451 Results 24 hrs Laboratory Tests Test 07/20/16 04:50 07/20/16 04:51 White Blood Count 4.9 Red Blood Count 3.22 L Hemoglobin 8.7 L Hematocrit 27.5 L Mean Corpuscular Volume 85.4 Mean Corpuscular Hemoglobin 27.0 L Mean Corpuscular Hemoglobin Concent 31.6 L Red Cell Distribution Width 14.4 Platelet Count 254 Mean Platelet Volume 10.6 H Neutrophils % 66.0 Lymphocytes % 22.3 Monocytes % 9.7 Eosinophils % 0.4 Basophils % 1.0 Nucleated Red Blood Cells % 0.0 Neutrophils # 3.3 Lymphocytes # 1.1 Monocytes # 0.5 Eosinophils # 0.0 Basophils # 0.1 Nucleated Red Blood Cells # 0.0 Sodium Level 140 Potassium Level 3.8 Chloride Level 109 Carbon Dioxide Level 24 Anion Gap 11 Blood Urea Nitrogen 45 #H Creatinine 5.82 #H Glucose Level 71 Calcium Level 8.1 L Medications Medications Current Medications Atenolol (Tenormin) 25 mg DAILY PO Last administered on 07/20/16 08:29; Admin Dose 25 MG; Start 07/18/16 at 09:30 Ondansetron HCl (Zofran Inj) 4 mg Q6H PRN IV NAUSEA AND/OR VOMITING Last administered on 07/20/16 14:40; Admin Dose 4 MG; Start 07/18/16 at 09:00 Hydralazine HCl (Apresoline) 10 mg Q4H PRN IV ELEVATED BLOOD PRESSURE Last administered on 07/19/16 17:05; Admin Dose 10 MG; Start 07/18/16 at 09:00 Acetaminophen (Tylenol Tab) 650 mg Q6H PRN PO PAIN AND OR ELEVATED TEMP Last administered on 07/20/16 05:54; Admin Dose 650 MG; Start 07/18/16 at 15:00 Citric Acid/ Sodium Citrate (Bicitra) 30 ml BID PO Last administered on 08:30; Admin Dose 30 ML; Start 07/18/16 at 21:00 Ranitidine HCl (Zantac) 150 mg BID PO Last administered on 07/20/16 08:30; Admin Dose 150 MG; Start 07/19/16 at 13:00 Morphine Sulfate (morphine) 4 mg Q3H PRN IV MODERATE PAIN LEVEL 4-6 Last administered on 07/19/16 17:32; Admin Dose 4 MG; Start 07/19/16 at 17:00 GERMAN MARTELL July 20, 2016 14:57
[2016-07-20] MEDS: MANNITOL 25% 50 ML IV PRN (15:05)
[2016-07-21] VITALS (9 sets, daily range): BP systolic 131–164; BP diastolic 70–82; PULSE 58–80; RESP 14–18
[2016-07-21 05:50] LABS: ADD SCAN DIFF NO
[2016-07-21 05:53] LABS: BASOPHIL # 0.1 10^3/ul (0.0-0.1); BASOPHILS % 1.1 % (0.0-2.0); EOSINOPHILS # 0.2 10^3/ul (0.0-0.5); HEMATOCRIT 29.8 % (37.0-47.0); HEMOGLOBIN 9.5 g/dl (12.0-16.0); LYMPHOCYTES # 1.4 10^3/ul (0.8-2.9); LYMPHOCYTES % 25.3 % (15.0-51.0); MEAN CORPUSCULAR HEMOGLOBIN 27.7 pg (29.0-33.0); MEAN CORPUSCULAR HGB CONC 31.9 g/dl (32.0-37.0); MEAN CORPUSCULAR VOLUME 86.9 fl (82.0-101.0); MEAN PLATELET VOLUME 10.6 fl (7.4-10.4); MONOCYTE # 0.6 10^3/ul (0.3-0.9); MONOCYTES % 10.6 % (0.0-11.0); NEUTROPHIL # 3.3 10^3/ul (1.6-7.5); NEUTROPHILS % 59.5 % (39.0-77.0); PLATELET COUNT 223 10^3/UL (140-415); RED BLOOD COUNT 3.43 10^6/ul (4.20-5.40); RED CELL DISTRIBUTION WIDTH 13.9 % (11.5-14.5); WHITE BLOOD COUNT 5.6 10^3/ul (4.8-10.8)
[2016-07-21 06:25] LABS: POTASSIUM 3.6 mmol/L (3.5-5.1)
[2016-07-21 06:27] LABS: CREATININE 5.51 mg/dl (0.44-1.00)
[2016-07-21 06:28] LABS: CALCIUM 8.8 mg/dl (8.4-10.2)
[2016-07-21] MEDS: ATENOLOL 25 MG TAB PO SCH (09:00)
[2016-07-21] MEDS: RANITIDINE 150 MG TAB PO SCH ×2 (10:53→21:06)
[2016-07-21] MEDS: CITRIC ACID/SODIUM CITRATE 15 ML CUP PO SCH ×2 (10:53→21:06)
[2016-07-21] MEDS: morphine 4 MG/ML VIAL IV PRN (10:56)
--- NOTE | 2016-07-21 12:03 | PN ---
Date/Time of Note Date/Time of Note DATE: 07/21/16 TIME: 12:00 Assessment/Plan VTE Prophylaxis VTE Prophylaxis Intervention: SCD's Lines/Catheters IV C[facility]ter Type (from [facility]): Saline Lock Urinary Cath still in place: No Assessment/Plan Chief Complaint/Hosp Course ASSESSMENT AND PLAN: 46-year-old female presenting with renal insufficiency and anemia. 1. Severe anemia -possibly secondary to dysfunctional uterine bleeding. The pelvic ultrasound did showed hypoechoic focus in the lower uterine segment measuring 2.3 cm, likely a fibroid. The patient denies any prior history of irregular menses except for 1 episode that occurred last month. That was the first time it happened. Pt received blood transfusion. H/H stable. - f/u H/H. Consider RN DOCUMENT IMPROVEMENT SPECIALIST consult. 2. Acute renal insufficiency. Again, her BUN and creatinine levels severely elevated, but trending down (8 -> 5), although she has adequate urine output. Appreciate renal consult. - PermCath placement and then hemodialysis today. Follow up renal recommendations. 3. Hypertension. Again, blood pressure is on the high normal end. Continue hydralazine p.r.n. 4. High cholesterol, follow up lipid panel. Continue to monitor for now. 5. Gastrointestinal prophylaxis - H2 hector. 6. Deep venous thrombosis prophylaxis for now, sequential compression devices. Problems: Subjective 24 Hr Interval Summary Free Text/Dictation Pt had some dizziness, no acute events overnight. Awaiting HD for later today. Exam/Review of Systems Vital Signs Vitals Vital Signs Date Time Temp Pulse Resp B/P Pulse Ox O2 Delivery O2 Flow Rate FiO2 07/21/16 08:36 98.0 68 18 164/75 92 07/19/16 17:37 Room Air 07/19/16 16:15 3.0 Intake and Output 07/20/16 07/20/16 07/21/16 15:00 23:00 07:00 Intake Total 1040 ml Output Total 1500 ml Balance -460 ml Exam GENERAL: The patient is lying in bed, multiple family members at the bedside. No acute distress. HEENT: Pupils equal, round, react to light. Extraocular muscles intact. NECK: Supple, no thyromegaly. LUNGS: Clear to auscultation bilaterally. CARDIOVASCULAR: S1, S2 heard. No rubs or gallops. ABDOMEN: Soft, nontender, nondistended. Normal bowel sounds. No rebound or guarding. MUSCULOSKELETAL: No lower extremity bilaterally. NEUROLOGIC: No focal deficits. Results Result Diagram: 07/21/165 07/21/16 043 Results 24 hrs Laboratory Tests Test 07/21/16 04:35 White Blood Count 5.6 Red Blood Count 3.43 L Hemoglobin 9.5 L Hematocrit 29.8 L Mean Corpuscular Volume 86.9 Mean Corpuscular Hemoglobin 27.7 L Mean Corpuscular Hemoglobin Concent 31.9 L Red Cell Distribution Width 13.9 Platelet Count 223 Mean Platelet Volume 10.6 H Neutrophils % 59.5 Lymphocytes % 25.3 Monocytes % 10.6 Eosinophils % 3.0 Basophils % 1.1 Nucleated Red Blood Cells % 0.0 Neutrophils # 3.3 Lymphocytes # 1.4 Monocytes # 0.6 Eosinophils # 0.2 Basophils # 0.1 Nucleated Red Blood Cells # 0.0 Sodium Level 141 Potassium Level 3.6 Chloride Level 100 Carbon Dioxide Level 27 Anion Gap 18 #H Blood Urea Nitrogen 31 #H Creatinine 5.51 H Glucose Level 94 Calcium Level 8.8 Medications Medications Current Medications Atenolol (Tenormin) 25 mg DAILY PO Last administered on 07/20/16 08:29; Admin Dose 25 MG; Start 07/18/16 at 09:30 Ondansetron HCl (Zofran Inj) 4 mg Q6H PRN IV NAUSEA AND/OR VOMITING Last administered on 07/20/16 14:40; Admin Dose 4 MG; Start 07/18/16 at 09:00 Hydralazine HCl (Apresoline) 10 mg Q4H PRN IV ELEVATED BLOOD PRESSURE Last administered on 07/19/16 17:05; Admin Dose 10 MG; Start 07/18/16 at 09:00 Acetaminophen (Tylenol Tab) 650 mg Q6H PRN PO PAIN AND OR ELEVATED TEMP Last administered on 07/20/16 05:54; Admin Dose 650 MG; Start 07/18/16 at 15:00 Citric Acid/ Sodium Citrate (Bicitra) 30 ml BID PO Last administered on 10:53; Admin Dose 30 ML; Start 07/18/16 at 21:00 Ranitidine HCl (Zantac) 150 mg BID PO Last administered on 07/21/16 10:53; Admin Dose 150 MG; Start 07/19/16 at 13:00 Morphine Sulfate (morphine) 4 mg Q3H PRN IV MODERATE PAIN LEVEL 4-6 Last administered on 07/21/16t 10:56; Admin Dose 4 MG; Start 07/19/16 at 17:00 ORIN RAYMOND July 21, 2016 12:03
--- NOTE | 2016-07-21 13:35 | CONS ---
Date/Time of Note Date/Time of Note DATE: 07/21/16 TIME: 13:34 Assessment/Plan Assessment/Plan Chief Complaint/Hosp Course 1. Patient has end-stage renal disease , HD dependent. 2. The patient has uncontrolled hypertension. 3. The patient has chronic kidney disease, possibly due to diabetic nephropathy and hypertensive nephrosclerosis, anemia of kidney disease, metabolic acidosis. 4. The patient has history of dyslipidemia. Problems: Additional Assessment/Plan 1. continue HD 2. Kidney function optimization Consultation Date/Type/Reason Admit Date/Time July 18, 2016 at 02:27 Initial Consult Date 07/18/2016 Type of Consultation: renal Reason for Consultation Dr Drew Exam/Review of Systems Vital Signs Vitals Vital Signs Date Time Temp Pulse Resp B/P Pulse Ox O2 Delivery O2 Flow Rate FiO2 07/21/16 08:36 98.0 68 18 164/75 92 07/19/16 17:37 Room Air 07/19/16 16:15 3.0 Intake and Output 07/20/16 07/20/16 07/21/16 15:00 23:00 07:00 Intake Total 1040 ml Output Total 1500 ml Balance -460 ml Exam Constitutional: alert, oriented Neck: supple Respiratory: clear to auscultation Cardiovascular: regular rate and rhythm Results Result Diagram: 07/21/16 0435 07/21/16 0435 Results 24 hrs Laboratory Tests Test 07/21/16 04:35 White Blood Count 5.6 Red Blood Count 3.43 L Hemoglobin 9.5 L Hematocrit 29.8 L Mean Corpuscular Volume 86.9 Mean Corpuscular Hemoglobin 27.7 L Mean Corpuscular Hemoglobin Concent 31.9 L Red Cell Distribution Width 13.9 Platelet Count 223 Mean Platelet Volume 10.6 H Neutrophils % 59.5 Lymphocytes % 25.3 Monocytes % 10.6 Eosinophils % 3.0 Basophils % 1.1 Nucleated Red Blood Cells % 0.0 Neutrophils # 3.3 Lymphocytes # 1.4 Monocytes # 0.6 Eosinophils # 0.2 Basophils # 0.1 Nucleated Red Blood Cells # 0.0 Sodium Level 141 Potassium Level 3.6 Chloride Level 100 Carbon Dioxide Level 27 Anion Gap 18 #H Blood Urea Nitrogen 31 #H Creatinine 5.51 H Glucose Level 94 Calcium Level 8.8 Medications Medications Current Medications Atenolol (Tenormin) 25 mg DAILY PO Last administered on 07/20/16 08:29; Admin Dose 25 MG; Start 07/18/16 at 09:30 Ondansetron HCl (Zofran Inj) 4 mg Q6H PRN IV NAUSEA AND/OR VOMITING Last administered on 07/20/16 14:40; Admin Dose 4 MG; Start 07/18/16 at 09:00 Hydralazine HCl (Apresoline) 10 mg Q4H PRN IV ELEVATED BLOOD PRESSURE Last administered on 07/19/16 17:05; Admin Dose 10 MG; Start 07/18/16 at 09:00 Acetaminophen (Tylenol Tab) 650 mg Q6H PRN PO PAIN AND OR ELEVATED TEMP Last administered on 07/20/16 05:54; Admin Dose 650 MG; Start 07/18/16 at 15:00 Citric Acid/ Sodium Citrate (Bicitra) 30 ml BID PO Last administered on 10:53; Admin Dose 30 ML; Start 07/18/16 at 21:00 Ranitidine HCl (Zantac) 150 mg BID PO Last administered on 07/21/16 10:53; Admin Dose 150 MG; Start 07/19/16 at 13:00 Morphine Sulfate (morphine) 4 mg Q3H PRN IV MODERATE PAIN LEVEL 4-6 Last administered on 07/21/16 10:56; Admin Dose 4 MG; Start 07/19/16 at 17:00 GERMAN MARTELL July 21, 2016 13:35
[2016-07-21] MEDS ORDERED: SOD FERRIC GLUC COMPLX 125 MG in SOD CHLORIDE 0.9% 100 ML IVPB SCH (16:00)
[2016-07-21] MEDS ORDERED: HEPARIN 1000 UNITS/ML 10 ML INJ CATHETER ONE ×2 (16:00)
[2016-07-22 05:39] LABS: ADD SCAN DIFF NO
[2016-07-22 06:04] LABS: BASOPHIL # 0.1 10^3/ul (0.0-0.1); BASOPHILS % 1.3 % (0.0-2.0); EOSINOPHILS # 0.3 10^3/ul (0.0-0.5); EOSINOPHILS % 6.7 % (0.0-7.0); HEMATOCRIT 30.3 % (37.0-47.0); HEMOGLOBIN 9.7 g/dl (12.0-16.0); LYMPHOCYTES # 1.4 10^3/ul (0.8-2.9); LYMPHOCYTES % 28.5 % (15.0-51.0); MEAN CORPUSCULAR HEMOGLOBIN 27.6 pg (29.0-33.0); MEAN CORPUSCULAR VOLUME 86.3 fl (82.0-101.0); MEAN PLATELET VOLUME 10.5 fl (7.4-10.4); MONOCYTE # 0.5 10^3/ul (0.3-0.9); MONOCYTES % 9.9 % (0.0-11.0); NEUTROPHIL # 2.6 10^3/ul (1.6-7.5); NEUTROPHILS % 53.4 % (39.0-77.0); PLATELET COUNT 222 10^3/UL (140-415); RED BLOOD COUNT 3.51 10^6/ul (4.20-5.40); RED CELL DISTRIBUTION WIDTH 13.3 % (11.5-14.5); WHITE BLOOD COUNT 4.8 10^3/ul (4.8-10.8)
[2016-07-22 06:09] LABS: IRON 226 ug/dl (35-150)
[2016-07-22 06:15] LABS: POTASSIUM 3.3 mmol/L (3.5-5.1)
[2016-07-22 06:18] LABS: CREATININE 4.97 mg/dl (0.44-1.00)
[2016-07-22 06:19] LABS: CALCIUM 9.1 mg/dl (8.4-10.2); TOTAL IRON BINDING CAPACITY 235 ug/dl (241-421)
[2016-07-22 07:33] VITALS: BP 170/85; RESP 18
[2016-07-22] MEDS: ATENOLOL 25 MG TAB PO SCH (08:43)
[2016-07-22] MEDS: RANITIDINE 150 MG TAB PO SCH ×2 (08:43→20:26)
[2016-07-22] MEDS: CITRIC ACID/SODIUM CITRATE 15 ML CUP PO SCH (08:44)
[2016-07-22 11:15] VITALS: BP 139/79; PULSE 73; RESP 18
--- NOTE | 2016-07-22 11:39 | PN ---
Date/Time of Note Date/Time of Note DATE: 07/22/16 TIME: 11:33 Assessment/Plan VTE Prophylaxis VTE Prophylaxis Intervention: SCD's Lines/Catheters [facility] Permacath Urinary Cath still in place: No Assessment/Plan Chief Complaint/Hosp Course ASSESSMENT AND PLAN: 46-year-old female presenting with renal insufficiency and anemia. 1. Severe anemia -possibly secondary to dysfunctional uterine bleeding. The pelvic ultrasound did showed hypoechoic focus in the lower uterine segment measuring 2.3 cm, likely a fibroid. The patient denies any prior history of irregular menses except for 1 episode that occurred last month (first episode in her life). Pt received blood transfusion. H/H stable since transfusion. - f/u H/H. Monitor 2. Acute renal insufficiency. Again, her BUN and creatinine levels severely elevated, but trending down (8 -> 5 -> 4.9), although she has some urine output. Appreciate renal consult. - PermCath placement and then hemodialysis per renal rec's. - likely will need outpt HD set up 3. Hypertension. Again, blood pressure is on the high normal end. - switch to metoprolol BID - Continue hydralazine p.r.n. 4. High cholesterol, follow up lipid panel. Continue to monitor for now. 5. Gastrointestinal prophylaxis - H2 hector. 6. Deep venous thrombosis prophylaxis for now, sequential compression devices. Problems: Subjective 24 Hr Interval Summary Free Text/Dictation Pt had HD yesterday, no acute events overnight. Exam/Review of Systems Vital Signs Vitals Vital Signs Date Time Temp Pulse Resp B/P Pulse Ox O2 Delivery O2 Flow Rate FiO2 07/22/16 11:15 73 18 139/79 Room Air 07/22/16 07:33 97.5 95 07/19/16 16:15 3.0 Intake and Output 07/21/16 07/21/16 07/22/16 15:00 23:00 07:00 Intake Total 410 ml 440 ml Output Total 800 ml 400 ml Balance -390 ml 40 ml Exam GENERAL: The patient is lying in bed, multiple family members at the bedside. No acute distress. HEENT: Pupils equal, round, react to light. Extraocular muscles intact. NECK: Supple, no thyromegaly. LUNGS: Clear to auscultation bilaterally. CARDIOVASCULAR: S1, S2 heard. No rubs or gallops. ABDOMEN: Soft, nontender, nondistended. Normal bowel sounds. No rebound or guarding. MUSCULOSKELETAL: No lower extremity bilaterally. NEUROLOGIC: No focal deficits. Results Result Diagram: 07/22/16 04307/22/16 043 Results 24 hrs Laboratory Tests Test 07/22/16 04:30 White Blood Count 4.8 Red Blood Count 3.51 L Hemoglobin 9.7 L Hematocrit 30.3 L Mean Corpuscular Volume 86.3 Mean Corpuscular Hemoglobin 27.6 L Mean Corpuscular Hemoglobin Concent 32.0 Red Cell Distribution Width 13.3 Platelet Count 222 Mean Platelet Volume 10.5 H Neutrophils % 53.4 Lymphocytes % 28.5 Monocytes % 9.9 Eosinophils % 6.7 Basophils % 1.3 Nucleated Red Blood Cells % 0.0 Neutrophils # 2.6 Lymphocytes # 1.4 Monocytes # 0.5 Eosinophils # 0.3 Basophils # 0.1 Nucleated Red Blood Cells # 0.0 Sodium Level 143 Potassium Level 3.3 L Chloride Level 106 Carbon Dioxide Level 29 Anion Gap 11 # Blood Urea Nitrogen 24 H Creatinine 4.97 H Glucose Level 90 Calcium Level 9.1 Iron Level 226 H Total Iron Binding Capacity 235 L Percent Iron Saturation 96 H Medications Medications Current Medications Atenolol (Tenormin) 25 mg DAILY PO Last administered on 07/22/16 08:43; Admin Dose 25 MG; Start 07/18/16 at 09:30 Ondansetron HCl (Zofran Inj) 4 mg Q6H PRN IV NAUSEA AND/OR VOMITING Last administered on 07/20/16 14:40; Admin Dose 4 MG; Start 07/18/16 at 09:00 Hydralazine HCl (Apresoline) 10 mg Q4H PRN IV ELEVATED BLOOD PRESSURE Last administered on 07/19/16 17:05; Admin Dose 10 MG; Start 07/18/16 at 09:00 Acetaminophen (Tylenol Tab) 650 mg Q6H PRN PO PAIN AND OR ELEVATED TEMP Last administered on 07/20/16 05:54; Admin Dose 650 MG; Start 07/18/16 at 15:00 Citric Acid/ Sodium Citrate (Bicitra) 30 ml BID PO Last administered on 08:44; Admin Dose 30 ML; Start 07/18/16 at 21:00 Ranitidine HCl (Zantac) 150 mg BID PO Last administered on 07/22/16 08:43; Admin Dose 150 MG; Start 07/19/16 at 13:00 Morphine Sulfate 4 mg 4 mg Q3H PRN IV MODERATE PAIN LEVEL 4-6 Last administered on 07/21/16 10:56; Admin Dose 4 MG; Start 07/19/16 at 17:00 Ferric Sodium Gluconate Complex 125 mg/Sodium Chloride 110 ml @ 100 mls/hr Q24H IVPB Last administered on 07/21/16 19:34; Admin Dose 100 MLS/HR; Start at 16:00; Status Future Hold Potassium Chloride/Sodium Chloride (KCl/NS) 110 ml @ 55 mls/hr ONCE ONCE IVPB ; Start 07/22/16 at 11:30; Stop 07/22/16 at 13:29; Status ORIN ECHEVERRIA July 22, 2016 11:39
[2016-07-22] MEDS ORDERED: POTASSIUM CHLORIDE 20 MEQ in SOD CHLORIDE 0.9% 100 ML IVPB ONE (12:30)
[2016-07-22] MEDS ORDERED: POTASSIUM CHLORIDE (SR) 20 MEQ TAB PO STA (16:25)
--- NOTE | 2016-07-22 16:41 | CONS ---
Date/Time of Note Date/Time of Note DATE: 07/22/16 TIME: 16:40 Assessment/Plan Assessment/Plan Chief Complaint/Hosp Course renal A/P ESRD HTN HX DM ANEMIA METABOLIC ACIDOSIS BETTER PLAN HD Problems: Consultation Date/Type/Reason Admit Date/Time July 18, 2016 at 02:27 Type of Consultation: renal 24 HR Interval Summary Constitutional: no complaints Exam/Review of Systems Vital Signs Vitals Vital Signs Date Time Temp Pulse Resp B/P Pulse Ox O2 Delivery O2 Flow Rate FiO2 07/22/16 11:15 73 18 139/79 Room Air 07/22/16 07:33 97.5 95 07/19/16 16:15 3.0 Intake and Output 07/21/16 07/21/16 07/22/16 15:00 23:00 07:00 Intake Total 410 ml 440 ml Output Total 800 ml 400 ml Balance -390 ml 40 ml Exam ENMT: nl external ears & nose Neck: non-tender, supple Respiratory: clear to auscultation Cardiovascular: regular rate and rhythm Gastrointestinal: soft Results Result Diagram: 07/22/16 0430 07/22/16 0430 Results 24 hrs Laboratory Tests Test 07/22/16 04:30 White Blood Count 4.8 Red Blood Count 3.51 L Hemoglobin 9.7 L Hematocrit 30.3 L Mean Corpuscular Volume 86.3 Mean Corpuscular Hemoglobin 27.6 L Mean Corpuscular Hemoglobin Concent 32.0 Red Cell Distribution Width 13.3 Platelet Count 222 Mean Platelet Volume 10.5 H Neutrophils % 53.4 Lymphocytes % 28.5 Monocytes % 9.9 Eosinophils % 6.7 Basophils % 1.3 Nucleated Red Blood Cells % 0.0 Neutrophils # 2.6 Lymphocytes # 1.4 Monocytes # 0.5 Eosinophils # 0.3 Basophils # 0.1 Nucleated Red Blood Cells # 0.0 Sodium Level 143 Potassium Level 3.3 L Chloride Level 106 Carbon Dioxide Level 29 Anion Gap 11 # Blood Urea Nitrogen 24 H Creatinine 4.97 H Glucose Level 90 Calcium Level 9.1 Iron Level 226 H Total Iron Binding Capacity 235 L Percent Iron Saturation 96 H Medications Medications Current Medications Ondansetron HCl (Zofran Inj) 4 mg Q6H PRN IV NAUSEA AND/OR VOMITING Last administered on 07/20/16t 14:40; Admin Dose 4 MG; Start 07/18/16 at 09:00 Hydralazine HCl (Apresoline) 10 mg Q4H PRN IV ELEVATED BLOOD PRESSURE Last administered on 07/19/16 17:05; Admin Dose 10 MG; Start 07/18/16 at 09:00 Acetaminophen (Tylenol Tab) 650 mg Q6H PRN PO PAIN AND OR ELEVATED TEMP Last administered on 07/20/16 05:54; Admin Dose 650 MG; Start 07/18/16 at 15:00 Citric Acid/ Sodium Citrate (Bicitra) 30 ml BID PO Last administered on 08:44; Admin Dose 30 ML; Start 07/18/16 at 21:00 Ranitidine HCl (Zantac) 150 mg BID PO Last administered on 07/22/16 08:43; Admin Dose 150 MG; Start 07/19/16 at 13:00 Morphine Sulfate 4 mg 4 mg Q3H PRN IV MODERATE PAIN LEVEL 4-6 Last administered on 07/21/16 10:56; Admin Dose 4 MG; Start 07/19/16 at 17:00 Ferric Sodium Gluconate Complex/ Sodium Chloride (Ferrlecit/NS) 110 ml @ 100 mls/hr Q24H IVPB Last administered on 07/21/16 19:34; Admin Dose 100 MLS/HR; Start 07/21/16 at 16:00; Status Future Hold Metoprolol Tartrate (Lopressor) 25 mg BID PO ; Start 07/23/16 at 09:00 TOI REILLY MD July 22, 2016 16:41
[2016-07-22 19:52] VITALS: BP 178/81; RESP 18
[2016-07-22] MEDS ORDERED: ATENOLOL 25 MG TAB PO SCH (21:00)
[2016-07-23] VITALS (10 sets, daily range): BP systolic 101–156; BP diastolic 60–78; PULSE 55–76; RESP 18–20
[2016-07-23 05:18] LABS: ADD SCAN DIFF NO
[2016-07-23 05:28] LABS: BASOPHIL # 0.1 10^3/ul (0.0-0.1); BASOPHILS % 1.2 % (0.0-2.0); EOSINOPHILS # 0.3 10^3/ul (0.0-0.5); EOSINOPHILS % 5.7 % (0.0-7.0); HEMATOCRIT 30.2 % (37.0-47.0); HEMOGLOBIN 9.6 g/dl (12.0-16.0); LYMPHOCYTES # 1.7 10^3/ul (0.8-2.9); LYMPHOCYTES % 27.9 % (15.0-51.0); MEAN CORPUSCULAR HEMOGLOBIN 27.7 pg (29.0-33.0); MEAN CORPUSCULAR HGB CONC 31.8 g/dl (32.0-37.0); MEAN PLATELET VOLUME 10.5 fl (7.4-10.4); MONOCYTE # 0.5 10^3/ul (0.3-0.9); MONOCYTES % 9.1 % (0.0-11.0); NEUTROPHIL # 3.3 10^3/ul (1.6-7.5); NEUTROPHILS % 55.9 % (39.0-77.0); PLATELET COUNT 227 10^3/UL (140-415); RED BLOOD COUNT 3.47 10^6/ul (4.20-5.40); RED CELL DISTRIBUTION WIDTH 13.2 % (11.5-14.5); WHITE BLOOD COUNT 5.9 10^3/ul (4.8-10.8)
[2016-07-23 05:52] LABS: CALCIUM 9.3 mg/dl (8.4-10.2); CREATININE 6.31 mg/dl (0.44-1.00)
[2016-07-23] MEDS: RANITIDINE 150 MG TAB PO SCH (09:39)
[2016-07-23] MEDS: METOPROLOL 25 MG TAB PO SCH ×2 (09:39→20:15)
--- NOTE | 2016-07-23 10:45 | PN ---
Date/Time of Note Date/Time of Note DATE: 07/23/16 TIME: 10:43 Assessment/Plan VTE Prophylaxis VTE Prophylaxis Intervention: SCD's Lines/Catheters IV [facility]ter Type (from [facility]): Permacath Urinary Cath still in place: No Assessment/Plan Assessment/Plan 46 yo F with pmhx HTN, h/o DM, admitted for ALIA and anemia. #anemia: presented with hgb 7 in setting of recent vaginal bleeding, suspect DUB 2/2 fibroid -pelvic US with 2 cm hypoechoic focus in lower segment -sp blood transfusion in the ER with stable hgb since -will need staff auditor f/u as outpatient #ALIA: progression to ESRD per renal, likely 2/2 h/o HTN and DM -cont HD as per renal -will likely need outpatient HD coordination. renal and case mangement on board #HTN: BP control with BID BB -home ARB stopped given ALIA #h/o DM2: a1c <6 on admission #lipids: check in AM #DVT prophx: SCDs #dispo: pending coordination of outpatient HD and renal care Subjective 24 Hr Interval Summary Free Text/Dictation Pt without complaint this AM. States she felt a little lightheaded after HD yesterday but feels ok now. Denies any hematochezia/melena prior to admission. Does not recall being told she had fibroids previously Exam/Review of Systems Vital Signs Vitals Vital Signs Date Time Temp Pulse Resp B/P Pulse Ox O2 Delivery O2 Flow Rate FiO2 07/23/16 07:51 98.4 87 18 136/76 95 07/22/16 11:15 Room Air 07/19/16 16:15 3.0 Intake and Output 07/22/16 07/22/16 07/23/16 15:00 23:00 07:00 Intake Total 20 ml 940 ml 240 ml Output Total 300 ml 800 ml Balance 20 ml 640 ml -560 ml Exam NAD, standing at bedside sink R chest permacath c/d/i, no surrounding induration or erythema no mrg lungs clear abd soft no le edema no rashes Results Result Diagram: 07/23/16 0443 07/23/16 0443 Results 24 hrs Laboratory Tests Test 07/23/16 04:43 White Blood Count 5.9 # Red Blood Count 3.47 L Hemoglobin 9.6 L Hematocrit 30.2 L Mean Corpuscular Volume 87.0 Mean Corpuscular Hemoglobin 27.7 L Mean Corpuscular Hemoglobin Concent 31.8 L Red Cell Distribution Width 13.2 Platelet Count 227 Mean Platelet Volume 10.5 H Neutrophils % 55.9 Lymphocytes % 27.9 Monocytes % 9.1 Eosinophils % 5.7 Basophils % 1.2 Nucleated Red Blood Cells % 0.0 Neutrophils # 3.3 Lymphocytes # 1.7 Monocytes # 0.5 Eosinophils # 0.3 Basophils # 0.1 Nucleated Red Blood Cells # 0.0 Sodium Level 144 Potassium Level 4.0 Chloride Level 103 Carbon Dioxide Level 28 Anion Gap 17 H Blood Urea Nitrogen 30 H Creatinine 6.31 H Glucose Level 92 Calcium Level 9.3 Medications Medications Current Medications Ondansetron HCl (Zofran Inj) 4 mg Q6H PRN IV NAUSEA AND/OR VOMITING Last administered on 07/20/16 14:40; Admin Dose 4 MG; Start 07/18/16 at 09:00 Acetaminophen 650 mg 650 mg Q6H PRN PO PAIN AND OR ELEVATED TEMP Last administered on 07/20/16 05:54; Admin Dose 650 MG; Start 07/18/16 at 15:00 Ferric Sodium Gluconate Complex/ Sodium Chloride (Ferrlecit/NS) 110 ml @ 100 mls/hr Q24H IVPB Last administered on 07/21/16 19:34; Admin Dose 100 MLS/HR; Start 07/21/16 at 16:00; Status Future Hold Metoprolol Tartrate (Lopressor) 25 mg BID PO Last administered on 07/23/16 09: 39; Admin Dose 25 MG; Start 07/23/16 at 09:00 CATHIE MCCOLLUM MD July 23, 2016 10:45
--- NOTE | 2016-07-23 14:14 | CONS ---
Date/Time of Note Date/Time of Note DATE: 07/23/16 TIME: 14:13 Assessment/Plan Assessment/Plan Chief Complaint/Hosp Course 1. Patient has end-stage renal disease , HD dependent. 2. The patient has uncontrolled hypertension. 3. The patient has chronic kidney disease, possibly due to diabetic nephropathy and hypertensive nephrosclerosis, anemia of kidney disease, metabolic acidosis. 4. The patient has history of dyslipidemia. Problems: Additional Assessment/Plan 1. Continue HD Consultation Date/Type/Reason Admit Date/Time July 18, 2016 at 02:27 Initial Consult Date 07/18/2016 Type of Consultation: renal Reason for Consultation Dr Drew Exam/Review of Systems Vital Signs Vitals Vital Signs Date Time Temp Pulse Resp B/P Pulse Ox O2 Delivery O2 Flow Rate FiO2 07/23/16 07:51 98.4 87 18 136/76 95 07/22/16 11:15 Room Air 07/19/16 16:15 3.0 Intake and Output 07/22/16 07/22/16 07/23/16 15:00 23:00 07:00 Intake Total 20 ml 940 ml 240 ml Output Total 300 ml 800 ml Balance 20 ml 640 ml -560 ml Exam Constitutional: alert, oriented Neck: supple Respiratory: clear to auscultation Cardiovascular: regular rate and rhythm Results Result Diagram: 07/23/16 0443 07/23/163 Results 24 hrs Laboratory Tests Test 07/23/16 04:43 White Blood Count 5.9 # Red Blood Count 3.47 L Hemoglobin 9.6 L Hematocrit 30.2 L Mean Corpuscular Volume 87.0 Mean Corpuscular Hemoglobin 27.7 L Mean Corpuscular Hemoglobin Concent 31.8 L Red Cell Distribution Width 13.2 Platelet Count 227 Mean Platelet Volume 10.5 H Neutrophils % 55.9 Lymphocytes % 27.9 Monocytes % 9.1 Eosinophils % 5.7 Basophils % 1.2 Nucleated Red Blood Cells % 0.0 Neutrophils # 3.3 Lymphocytes # 1.7 Monocytes # 0.5 Eosinophils # 0.3 Basophils # 0.1 Nucleated Red Blood Cells # 0.0 Sodium Level 144 Potassium Level 4.0 Chloride Level 103 Carbon Dioxide Level 28 Anion Gap 17 H Blood Urea Nitrogen 30 H Creatinine 6.31 H Glucose Level 92 Calcium Level 9.3 Medications Medications Current Medications Ondansetron HCl (Zofran Inj) 4 mg Q6H PRN IV NAUSEA AND/OR VOMITING Last administered on 07/20/16 14:40; Admin Dose 4 MG; Start 07/18/16 at 09:00 Acetaminophen 650 mg 650 mg Q6H PRN PO PAIN AND OR ELEVATED TEMP Last administered on 07/20/16 05:54; Admin Dose 650 MG; Start 07/18/16 at 15:00 Ferric Sodium Gluconate Complex/ Sodium Chloride (Ferrlecit/NS) 110 ml @ 100 mls/hr Q24H IVPB Last administered on 07/21/16 19:34; Admin Dose 100 MLS/HR; Start 07/21/16 at 16:00; Status Future Hold Metoprolol Tartrate (Lopressor) 25 mg BID PO Last administered on 07/23/16 09: 39; Admin Dose 25 MG; Start 07/23/16 at 09:00 GERMAN MARTELL July 23, 2016 14:14
[2016-07-24 05:10] LABS: ADD SCAN DIFF NO
[2016-07-24 05:19] LABS: BASOPHIL # 0.1 10^3/ul (0.0-0.1); BASOPHILS % 0.8 % (0.0-2.0); EOSINOPHILS # 0.3 10^3/ul (0.0-0.5); HEMATOCRIT 28.9 % (37.0-47.0); HEMOGLOBIN 9.2 g/dl (12.0-16.0); LYMPHOCYTES # 1.7 10^3/ul (0.8-2.9); LYMPHOCYTES % 27.6 % (15.0-51.0); MEAN CORPUSCULAR HEMOGLOBIN 27.9 pg (29.0-33.0); MEAN CORPUSCULAR HGB CONC 31.8 g/dl (32.0-37.0); MEAN CORPUSCULAR VOLUME 87.6 fl (82.0-101.0); MEAN PLATELET VOLUME 10.7 fl (7.4-10.4); MONOCYTE # 0.5 10^3/ul (0.3-0.9); MONOCYTES % 7.5 % (0.0-11.0); NEUTROPHIL # 3.5 10^3/ul (1.6-7.5); NEUTROPHILS % 58.6 % (39.0-77.0); PLATELET COUNT 204 10^3/UL (140-415); RED CELL DISTRIBUTION WIDTH 13.2 % (11.5-14.5)
[2016-07-24 05:29] LABS: CALCIUM 9.1 mg/dl (8.4-10.2); CREATININE 5.45 mg/dl (0.44-1.00); POTASSIUM 4.1 mmol/L (3.5-5.1)
[2016-07-24 05:45] LABS: CHOL/HDL RATIO 6.4 RATIO
[2016-07-24 07:34] VITALS: BP 135/66; RESP 19
[2016-07-24] MEDS: METOPROLOL 25 MG TAB PO SCH (08:23)
--- NOTE | 2016-07-24 15:35 | PN ---
Date/Time of Note Date/Time of Note DATE: 07/24/16 TIME: 15:34 Assessment/Plan VTE Prophylaxis VTE Prophylaxis Intervention: SCD's Lines/Catheters IV Catheter Type (from Nrs): Urinary Cath still in place: No Assessment/Plan Assessment/Plan Assessment/Plan 46 yo F with pmhx HTN, h/o DM, admitted for ALIA and anemia. #anemia: presented with hgb 7 in setting of recent vaginal bleeding, suspect DUB 2/2 fibroid -pelvic US with 2 cm hypoechoic focus in lower segment -sp blood transfusion in the ER with stable hgb since -will need sleeve setter f/u as outpatient #ALIA: progression to ESRD per renal, likely 2/2 h/o HTN and DM -cont HD as per renal -will likely need outpatient HD coordination. renal and case management on board #HTN: BP control with BID BB -home ARB stopped given ALIA #h/o DM2: a1c <6 on admission #lipids: check in AM #DVT prophx: SCDs #dispo: pending coordination of outpatient HD and renal care Subjective 24 Hr Interval Summary Free Text/Dictation Feels well. No complaints. Wants to know when she can go home. Exam/Review of Systems Vital Signs Vitals Vital Signs Date Time Temp Pulse Resp B/P Pulse Ox O2 Delivery O2 Flow Rate FiO2 07/24/16 07:34 98.0 60 19 135/66 98 07/22/16 11:15 Room Air Intake and Output 07/23/16 07/23/16 07/24/16 15:00 23:00 07:00 Intake Total 300 ml 620 ml 850 ml Output Total 800 ml 650 ml Balance -500 ml 620 ml 200 ml Exam NAD, HD line in R chest c/d/i no mrg lungs clear abd soft no rashes responds to questions appropriately Results Result Diagram: 07/24/16 0430 07/24/16 0430 Results 24 hrs Laboratory Tests Test 07/23/16 20:13 07/24/16 04:30 Bedside Glucose 114 White Blood Count 6.0 Red Blood Count 3.30 L Hemoglobin 9.2 L Hematocrit 28.9 L Mean Corpuscular Volume 87.6 Mean Corpuscular Hemoglobin 27.9 L Mean Corpuscular Hemoglobin Concent 31.8 L Red Cell Distribution Width 13.2 Platelet Count 204 Mean Platelet Volume 10.7 H Neutrophils % 58.6 Lymphocytes % 27.6 Monocytes % 7.5 Eosinophils % 5.0 Basophils % 0.8 Nucleated Red Blood Cells % 0.0 Neutrophils # 3.5 Lymphocytes # 1.7 Monocytes # 0.5 Eosinophils # 0.3 Basophils # 0.1 Nucleated Red Blood Cells # 0.0 Sodium Level 138 Potassium Level 4.1 Chloride Level 104 Carbon Dioxide Level 28 Anion Gap 10 # Blood Urea Nitrogen 25 H Creatinine 5.45 H Glucose Level 91 Calcium Level 9.1 Triglycerides Level 273 H Cholesterol Level 167 LDL Cholesterol, Calculated 86 HDL Cholesterol 26 L Cholesterol/HDL Ratio 6.4 Medications Medications Current Medications Ondansetron HCl (Zofran Inj) 4 mg Q6H PRN IV NAUSEA AND/OR VOMITING Last administered on 07/20/16 14:40; Admin Dose 4 MG; Start 07/18/16 at 09:00 Acetaminophen 650 mg 650 mg Q6H PRN PO PAIN AND OR ELEVATED TEMP Last administered on 07/20/16 05:54; Admin Dose 650 MG; Start 07/18/16 at 15:00 Ferric Sodium Gluconate Complex/ Sodium Chloride (Ferrlecit/NS) 110 ml @ 100 mls/hr Q24H IVPB Last administered on 07/21/16 19:34; Admin Dose 100 MLS/HR; Start 07/21/16 at 16:00; Status Future Hold Metoprolol Tartrate (Lopressor) 25 mg BID PO Last administered on 07/24/16 08: 23; Admin Dose 25 MG; Start 07/23/16 at 09:00 CATHIE MCCOLLUM MD July 24, 2016 15:35
[2016-07-24] MEDS ORDERED: METO-448 PO (16:58)
--- NOTE | 2016-07-24 16:59 | DS ---
Date/Time of Note Date/Time of Note DATE: 07/24/16 TIME: 16:59 Discharge Summary Admission/Discharge Info Admit Date/Time July 18, 2016 at 02:27 Discharge Date/Time Final Diagnosis end stage renal disease Patient Condition: Good Consults Nephrology Procedures 5.24 MARIA GUADALUPE IMPRESSION: 1. Hyperechogenic, atrophic kidneys, suggesting medical renal disease. 2. No evidence of hydronephrosis, renal mass or renal calculi. 5.24 pelvic US IMPRESSION: 1. Hypoechoic focus in the lower uterine segment measuring up to 2.3 cm, likely a fibroid. 2. Otherwise unremarkable pelvic ultrasound, but with technically limited quality of images. 5.25 HD line placement Hx of Present Illness The patient is a 46-year-old female with a history of hypertension, dyslipidemia , and possibly anemia, who presented to the emergency department after she was sent from a clinic for abnormal lab results including decreased hemoglobin and elevated creatinine. The patient reports some generalized weakness and on further questioning, she did report occasional abdominal pain, mainly in the epigastric area as well as having almost constant vaginal bleeding for over a year. When she presented to the ER, blood pressure was 191/79, heart rate 68, respiratory rate 20, temperature 98.4, oxygen saturation 100% on room air. Laboratories result shows a hemoglobin of 7, creatinine 8.57, BUN 66, bicarb 14 , chloride 112. Potassium was 4.4 and sodium 139. Blood transfusion had been started in the ER. Hospital Course For her anemia, pt was transfused 1 unit of pRBCs shortly after admission. Hgb with appropriate increase and remained stable. Pelvic US with fibroid, likely source of anemia. Pt advised to f/u with recreation leader for further management Re elevated Cr, pt seen by nephrology. Given her longstanding HTN, pt thought to have ESRD 2/2 hypertensive nephropathy. Pt started on iHD which she tolerated well during her stay. BP med regimen changed for improved control-->atenolol changed to metoprolol and ARB stopped as pt with ALIA on admission. Food And Beverage Manager can consider resuming as outpatient. Home Meds Active Scripts Metoprolol Tartrate* (Lopressor*) 25 Mg Tab, 25 MG PO BID for 14 Days, #28 TAB Prov:CATHIE MCCOLLUM MD 07/24/16 Reported Medications Acetaminophen* (Tylenol*) 325 Mg Tablet, 325 MG PO Q6H Y for PAIN AND OR ELEVATED TEMP, TAB 07/18/16 Discontinued Reported Medications Atenolol* (Atenolol*) 25 Mg Tablet, 25 MG PO DAILY, #30 TAB 07/18/16 Losartan Potassium* (Losartan Potassium*) 25 Mg Tablet, 25 MG PO DAILY, TAB 07/18/16 Follow-up Plan pt to start on outpatient HD also advised to f/u with gynecology for fibroid eval Primary Care Provider Not On Staff Doctor Time spent on discharge: > 30 minutes Pending Labs Laboratory Tests Test 07/23/16 20:13 07/24/16 04:30 Bedside Glucose 114mg/dL (70-220) White Blood Count 6.010^3/ul (4.8-10.8) Red Blood Count 3.3010^6/ul (4.20-5.40) Hemoglobin 9.2g/dl (12.0-16.0) Hematocrit 28.9% (37.0-47.0) Mean Corpuscular Volume 87.6fl (82.0-101.0) Mean Corpuscular Hemoglobin 27.9pg (29.0-33.0) Mean Corpuscular Hemoglobin Concent 31.8g/dl (32.0-37.0) Red Cell Distribution Width 13.2% (11.5-14.5) Platelet Count 82598^3/UL (140-415) Mean Platelet Volume 10.7fl (7.4-10.4) Neutrophils % 58.6% (39.0-77.0) Lymphocytes % 27.6% (15.0-51.0) Monocytes % 7.5% (0.0-11.0) Eosinophils % 5.0% (0.0-7.0) Basophils % 0.8% (0.0-2.0) Nucleated Red Blood Cells % 0.0/100WBC (0.0-0.0) Neutrophils # 3.510^3/ul (1.6-7.5) Lymphocytes # 1.710^3/ul (0.8-2.9) Monocytes # 0.510^3/ul (0.3-0.9) Eosinophils # 0.310^3/ul (0.0-0.5) Basophils # 0.110^3/ul (0.0-0.1) Nucleated Red Blood Cells # 0.010^3/ul (0.0-0.0) Sodium Level 138mmol/L (135-144) Potassium Level 4.1mmol/L (3.5-5.1) Chloride Level 104mmol/L (97-110) Carbon Dioxide Level 28mmol/L (21-31) Anion Gap 10 (8-16) Blood Urea Nitrogen 25mg/dl (7-20) Creatinine 5.45mg/dl (0.44-1.00) Glucose Level 91mg/dl (70-220) Calcium Level 9.1mg/dl (8.4-10.2) Triglycerides Level 273mg/dl (0-149) Cholesterol Level 167mg/dl (100-200) LDL Cholesterol, Calculated 86mg/dl HDL Cholesterol 26mg/dl (34-88) Cholesterol/HDL Ratio 6.4RATIO CATHIE MCCOLLUM MD July 24, 2016 16:59
--- NOTE | 2016-07-24 17:01 | PDOCDIS ---
Discharge Instructions DIAGNOSIS Discharge Diagnosis: end stage renal disease CONDITION Patient Condition: Good HOME CARE INSTRUCTIONS: Special Diet: renal diet FOLLOW UP/APPOINTMENTS Appointments nephrology as scheduled please schedule an appointment with gynecology to discuss your likely fibroid ( benign uterine mass). Please let the welfare case worker/nurse know if you do not already have a summer intern CATHIE MCCOLLUM MD July 24, 2016 17:01
--- NOTE | 2016-07-24 18:20 | CONS ---
Date/Time of Note Date/Time of Note DATE: 07/24/16 TIME: 18:19 Assessment/Plan Assessment/Plan Chief Complaint/Hosp Course renal A/P ESRD HTN HX DM ANEMIA METABOLIC ACIDOSIS BETTER PLAN HD dc ok out pt dialysis [facility] + to see rheumatology out pt Problems: Consultation Date/Type/Reason Admit Date/Time July 18, 2016 at 02:27 Type of Consultation: renal 24 HR Interval Summary Constitutional: no complaints Exam/Review of Systems Vital Signs Vitals Vital Signs Date Time Temp Pulse Resp B/P Pulse Ox O2 Delivery O2 Flow Rate FiO2 07/24/16 07:34 98.0 60 19 135/66 98 07/22/16 11:15 Room Air Intake and Output 07/23/16 07/23/16 07/24/16 15:00 23:00 07:00 Intake Total 300 ml 620 ml 850 ml Output Total 800 ml 650 ml Balance -500 ml 620 ml 200 ml Exam ENMT: nl external ears & nose Neck: supple Respiratory: clear to auscultation Cardiovascular: regular rate and rhythm Gastrointestinal: soft Genitourinary - Female: nl adnexae Results Result Diagram: 07/24/16 0430 07/24/16 0430 Results 24 hrs Laboratory Tests Test 07/23/16 20:13 07/24/16 04:30 Bedside Glucose 114 White Blood Count 6.0 Red Blood Count 3.30 L Hemoglobin 9.2 L Hematocrit 28.9 L Mean Corpuscular Volume 87.6 Mean Corpuscular Hemoglobin 27.9 L Mean Corpuscular Hemoglobin Concent 31.8 L Red Cell Distribution Width 13.2 Platelet Count 204 Mean Platelet Volume 10.7 H Neutrophils % 58.6 Lymphocytes % 27.6 Monocytes % 7.5 Eosinophils % 5.0 Basophils % 0.8 Nucleated Red Blood Cells % 0.0 Neutrophils # 3.5 Lymphocytes # 1.7 Monocytes # 0.5 Eosinophils # 0.3 Basophils # 0.1 Nucleated Red Blood Cells # 0.0 Sodium Level 138 Potassium Level 4.1 Chloride Level 104 Carbon Dioxide Level 28 Anion Gap 10 # Blood Urea Nitrogen 25 H Creatinine 5.45 H Glucose Level 91 Calcium Level 9.1 Triglycerides Level 273 H Cholesterol Level 167 LDL Cholesterol, Calculated 86 HDL Cholesterol 26 L Cholesterol/HDL Ratio 6.4 Medications Medications Current Medications Ondansetron HCl (Zofran Inj) 4 mg Q6H PRN IV NAUSEA AND/OR VOMITING Last administered on 5/26/17at 14:40; Admin Dose 4 MG; Start 07/18/16 at 09:00 Acetaminophen 650 mg 650 mg Q6H PRN PO PAIN AND OR ELEVATED TEMP Last administered on 07/20/16 05:54; Admin Dose 650 MG; Start 07/18/16 at 15:00 Ferric Sodium Gluconate Complex/ Sodium Chloride (Ferrlecit/NS) 110 ml @ 100 mls/hr Q24H IVPB Last administered on 07/21/16 19:34; Admin Dose 100 MLS/HR; Start 07/21/16 at 16:00; Status Future Hold Metoprolol Tartrate (Lopressor) 25 mg BID PO Last administered on 07/24/16 08: 23; Admin Dose 25 MG; Start 07/23/16 at 09:00 TOI REILLY MD July 24, 2016 18:20
== END 2016-07-24 18:39 | disposition home or self-care (01) | DRG 760 ==
LOC: E/R 21:53 → MS1 07-18 02:27
PROVIDERS: ADMIT Internal Medicine; ATTEND Internal Medicine
PROC: 30233N1 Transfusion of Nonautologous Red Blood Cells into Peripheral Vein, Percutaneous Approach (ICD-10-PCS; 2016-07-17)
PROC: 05HM33Z Insertion of Infusion Device into Right Internal Jugular Vein, Percutaneous Approach (ICD-10-PCS; principal; 2016-07-19)
PROC: B5131ZA Fluoroscopy of Right Jugular Veins using Low Osmolar Contrast, Guidance (ICD-10-PCS; 2016-07-19)
PROC: 5A1D00Z (ICD-10-PCS; 2016-07-19)
DX: N93.8 Other specified abnormal uterine and vaginal bleeding (principal); N18.6 End stage renal disease; E87.2 Acidosis; N17.9 Acute kidney failure, unspecified; I12.0 Hypertensive chronic kidney disease with stage 5 chronic kidney disease or end stage renal disease; E11.22 Type 2 diabetes mellitus with diabetic chronic kidney disease; D25.9 Leiomyoma of uterus, unspecified; D50.9 Iron deficiency anemia, unspecified; I16.0 Hypertensive urgency; E78.00 Pure hypercholesterolemia, unspecified; E78.5 Hyperlipidemia, unspecified; D63.1 Anemia in chronic kidney disease; K76.89 Other specified diseases of liver; Z99.2 Dependence on renal dialysis
CPT/HCPCS: 36430; 36558; 71010; 76775; 76830; 76856; 76942; 80048; 80053; 80061; 81001; 81003; 82436; 82570; 82962; 83036; 83540; 83615; 83970; 84100; 84133; 84300; 85014; 85018; 85025; 85045; 85610; 85730; 86038; 86160; 86704; 86709; 86803; 86850; 86900; 86901; 86920; 87340; 90935; 93970; 96374; J1940; J0360; J0690; J1644; J2150; J2250; J2270; J2405; J2916; J3010; J3480; J7040; P9016